=== PATIENT | female | born 1980 | race Two or more races ===

== ENCOUNTER 2017-06-04 20:38 | Emergency (ER) | payer BC ==
[~2017-06-04] VITALS: Ht 157.5 cm; Wt 66.6 kg
[2017-06-04] MEDS ORDERED: BUPIVAcaine/PF 2.5 mg/ml (0.25%) 30ml vial IJ ONE (22:55)
[2017-06-04] MEDS ORDERED: TETanus/Pertussis (Acell)/Diphther VAC/PF (Tdap-Adult) 0.5ml syringe IM ONE (22:55)
[2017-06-04 23:40] VITALS: BP 133/97
== END 2017-06-04 23:41 | disposition home or self-care (01) ==
LOC: ER 20:40
DX: S61.210A Laceration without foreign body of right index finger without damage to nail, initial encounter (principal); Z88.0 Allergy status to penicillin; W23.0XXA Caught, crushed, jammed, or pinched between moving objects, initial encounter; Y93.89 Activity, other specified; Y92.89 Other specified places as the place of occurrence of the external cause; Y99.8 Other external cause status
CPT/HCPCS: 12001; 73140; 90471; 90715; 99284; J3490